=== PATIENT | female | born 2000 | race Caucasian/White ===

== ENCOUNTER 2023-07-30 20:39 | Emergency (ER) | payer BC, SELFPAY ==
[2023-07-30 20:39] VITALS: BP 128/88; PULSE 70; RESP 20; TEMP 36.7; O2SAT 100; BMI 24.2
--- NOTE | 2023-07-30 21:24 | XR_ITS ---
PROCEDURE INFORMATION: Exam: XR Right Forearm Exam date and time: 07/30/2023 9:28 PM Age: 23 years old Clinical indication: Pain; Lower or forearm; Right; Additional info: Fall TECHNIQUE: Imaging protocol: Radiologic exam of the right forearm. Views: 2 views. Total images: 4 COMPARISON: CR XR HAND RT 2V 07/30/2023 9:28 PM FINDINGS: Bones/joints: No acute fracture or joint dislocation. Mild ulnar negative variance can lead to chronic wrist instability. No concerning bone lesions or calcifications. Joint spaces are well maintained. Fractures 4th and 5th metacarpals as described previously. Soft tissues: Unremarkable soft tissues. IMPRESSION: Negative right forearm.
--- NOTE | 2023-07-30 21:24 | XR_ITS ---
PROCEDURE INFORMATION: Exam: XR Right Wrist Exam date and time: 07/30/2023 9:28 PM Age: 23 years old Clinical indication: Pain; Wrist; Right; Additional info: Fall TECHNIQUE: Imaging protocol: Radiologic exam of the right wrist. Views: 1 or 2 views. Total images: 2 COMPARISON: CR XR FOREARM RT 2V 07/30/2023 9:28 PM FINDINGS: Bones/joints: No acute fracture or joint dislocation. Mild ulnar negative variance can lead to chronic wrist instability. Carpal alignment is well maintained. Fractures of the 4th and 5th metacarpals as described on separate radiograph. Soft tissues: Unremarkable soft tissues. IMPRESSION: 1. Negative right wrist. 2. Acute fractures 4th and 5th metacarpals as described separately.
--- NOTE | 2023-07-30 21:24 | XR_ITS ---
PROCEDURE INFORMATION: Exam: XR Right Hand Exam date and time: 07/30/2023 9:28 PM Age: 23 years old Clinical indication: Pain; Hand; Right; Additional info: Fall TECHNIQUE: Imaging protocol: Radiologic exam of the right hand. Views: 3 or more views. Total images: 6 COMPARISON: CR XR FOREARM RT 2V 07/30/2023 9:28 PM FINDINGS: Bones/joints: Acute transverse fracture mid shaft 4th metacarpal with dorsal displacement and dorsal angulation at the fracture site. Acute transverse fracture distal shaft 5th metacarpal with dorsal displacement and angulation of the fracture site. No joint dislocation. Joint spaces are appropriate for age. No concerning bone lesions or calcifications. Soft tissues: Soft tissue swelling at the fracture sites. IMPRESSION: Acute fractures 4th and 5th metacarpals as described.
--- NOTE | 2023-07-30 21:24 | XR_ITS ---
PROCEDURE INFORMATION: Exam: XR Right Elbow Exam date and time: 07/30/2023 9:28 PM Age: 23 years old Clinical indication: Pain; Elbow; Right; Additional info: Fall TECHNIQUE: Imaging protocol: Radiologic exam of the right elbow. Views: 3 or more views. Total images: 6 COMPARISON: CR XR FOREARM RT 2V 07/30/2023 9:28 PM FINDINGS: Bones/joints: No acute fracture, joint dislocation, or joint effusion. No concerning bone lesions or calcifications. Joint spaces are well maintained. Soft tissues: Unremarkable soft tissues. IMPRESSION: Negative right elbow.
[2023-07-30] MEDS: ONDANSETRON 4MG/2ML VIAL 4 MG IV ×2 (21:41→22:06)
[2023-07-30] MEDS: MORPHINE 4MG/ML SYRINGE 4 MG IV ×2 (21:41→22:07)
--- NOTE | 2023-07-30 21:41 | ED_ITS ---
Discharge Plan Disposition Patient Disposition: Home, Self-Care Condition: Good Prescriptions Prescriptions: New hydrocodone-acetaminophen 5-300 mg tablet 1 tab PO Q6H PRN (Reason: pain) 3 Days Qty: 12 0RF Referrals Follow up/Referrals: Juan Sahu DO [Emergency Provider] - See instructions Tomas Preston DO [Staff Physician] - See instructions (Please call office first thing in the morning to schedule follow up) Provider,Referral, MD [Primary Care Provider] - See instructions Activity Restrictions/Add. Instructions Additional Instructions/Restrictions: You have been evaluated in the ED for your injury. Keep the splint clean and dry, do not apply any pressure to it. You should follow-up with your PCP in the next 3 to 5 days. Please return to ED for any new or worsening symptoms. I have written for hydrocodone to help with pain. May also take ibuprofen and Tylenol as needed. Please call orthopedic surgery (Dr. Preston) first thing in the morning to schedule appointment for re-check. Clinical Impressions Clinical Impression: Closed fracture of metacarpal of right hand Instructions Patient Instructions: How to Take Care of Your Splint Discharge ED Provider: Juan Sahu General Adult HPI <Juan Sahu DO - Last Filed: 07/30/23 23:30> General Chief complaint: Fall Stated complaint: AO fall 07/29, right hand pain Time Seen by Provider: 07/30/23 21:31 Mode of Arrival: Ambulatory Source of Information: Patient Limitations: No Limitations Description of Symptoms (Recalled from ER Triage Doc. by RN): Pt presents to ED for R hand pain/injury. Pt states she fell down 2 stairs, no LOC, no other complaints. Pt has obvious deformity to R hand. Rates pain 9/10 History of Present Illness HPI narrative: 23-year-old female with no pertinent past medical history presents today for evaluation concerning right upper extremity pain. Patient states she fell down 2 stairs and landed on her right outstretched hand. Denies hitting her head or losing consciousness. Currently rates pain as 9 out of 10. No further complaints. Related Data Previous Rx's Medication Instructions Recorded hydrocodone 5 mg-acetaminophen 300 1 tab PO Q6H PRN pain 3 days #12 07/30/23 mg tablet tabs Allergies Allergy/AdvReac Type Severity Reaction Status Date / Time morphine Allergy Verified 07/30/23 22:15 PFSH <Juan Sahu DO - Last Filed: 07/30/23 23:30> [facility] Disclaimer: The information contained in this section may have been updated after the patient was seen, as this information can be updated by other users. Social History (Updated 07/30/23 @ 23:30 by Juan Sahu DO) Smoking Status: Current every day smoker alcohol intake: never current occupational status: employed Travel in the last 8 weeks: None <Juan Sahu DO - Last Filed: 07/30/23 23:30> ROS Obtained: Yes All systems reviewed & no additional complaints except as documented Physical Exam <Juan Sahu DO - Last Filed: 07/30/23 23:30> General General appearance: alert and in no apparent distress Head Head exam: atraumatic and normocephalic Eye Eye exam: Present normal appearance, PERRL and EOMI ENT ENT exam: Present normal oropharynx and mucous membranes moist Neck Neck exam: Present full ROM; Absent meningismus Respiratory Respiratory exam: Absent respiratory distress, wheezes, stridor or accessory muscle use Cardiovascular Cardiovascular exam: Present normal rhythm Abdominal Exam Abdominal exam: Present soft; Absent distention, tenderness, guarding, rebound or rigidity Extremities Exam Extremities exam: Present tenderness (Tenderness palpation over the right forearm, wrist and hand with associated swelling. Obvious deformity. Palpable radial pulses. Sensation intact.); Absent full ROM Neurological Exam Neurological exam: Present alert, oriented X3 and CN II-XII intact; Absent motor sensory deficit Psychiatric Psychiatric exam: Present normal affect and normal mood Skin Skin exam: Present warm and dry Medical Decision Making <Juan Sahu DO - Last Filed: 07/30/23 23:30> Medical Records Medical records reviewed: Yes I reviewed the patient's medical records. Dragan Inquiry Pt receiving controlled substance: No Dragan was queried for this patient: No Vital Signs: 07/30/23 20:39 Temperature 98.0 F Temperature Source Oral Pulse Rate [Left] 70 Respiratory Rate 20 Blood Pressure [Right Arm] 128/88 Blood Pressure Mean [Right Arm] 101 02 Sat by Pulse Oximetry 100 Oxygen Delivery Method Room Air Orders (Tests/Meds): ED MEDICATIONS Generic Name Dose Route Start Last Admin Trade Name Freq PRN Reason Stop Dose Admin Sodium Chloride 8 ml 07/30/23 22:13 Sodium Chloride 0.9% 10ml Vial IV 08/29/23 22:12 NEEDED PRN dilute pepcid Discontinued Medications Generic Name Dose Route Start Last Admin Trade Name Venessa PRN Reason Stop Dose Admin Diphenhydramine HCl 50 mg 07/30/23 22:13 07/30/23 22:16 Diphenhydramine 50mg/Ml Vial IV 07/30/23 22:14 50 mg ONCE ONE Administration Epinephrine HCl 0.3 mg 07/30/23 22:34 07/30/23 22:37 Epinephrine 1 Mg/Ml Ampul SQ 07/30/23 22:35 0.3 mg ONCE ONE Administration Famotidine 20 mg 07/30/23 22:13 07/30/23 22:15 Famotidine 20mg/2ml Vial IV 07/30/23 22:14 20 mg ONCE ONE Administration Ketamine HCl 20 mg 07/30/23 22:28 07/30/23 22:38 Ketamine 50mg/1ml Syringe NS 07/30/23 22:29 Not Given ONCE ONE Ketamine HCl 20 mg 07/30/23 22:35 07/30/23 23:25 Ketamine 50mg/1ml Syringe IV 07/30/23 22:36 20 mg ONCE ONE Administration Methylprednisolone Sodium Succinate 125 mg 07/30/23 23:18 07/30/23 23:33 Methylprednisolone Sod Succ 125mg Vial IV 07/30/23 23:19 125 mg ONCE ONE Administration Morphine Sulfate 4 mg 07/30/23 21:24 07/30/23 21:41 Morphine 4mg/Ml Syringe IV 07/30/23 21:25 4 mg ONCE ONE Administration Morphine Sulfate 4 mg 07/30/23 22:03 07/30/23 22:07 Morphine 4mg/Ml Syringe IV 07/30/23 22:04 4 mg ONCE ONE Administration Ondansetron HCl 4 mg 07/30/23 21:24 07/30/23 21:41 Ondansetron 4mg/2ml Vial IV 07/30/23 21:25 4 mg ONCE ONE Administration Ondansetron HCl 4 mg 07/30/23 22:03 07/30/23 22:06 Ondansetron 4mg/2ml Vial IV 07/30/23 22:04 4 mg ONCE ONE Administration ORDERS Category Date Time Status XR elbow RT min 3V Routine Exams 07/30/23 21:24 Completed XR forearm RT 2V Routine Exams 07/30/23 21:24 Completed XR hand RT 2V Stat Exams 07/30/23 23:33 Completed XR hand RT min 3V Stat Exams 07/30/23 21:24 Completed XR wrist RT 2V Routine Exams 07/30/23 21:24 Completed Medical Decision Narrative: 23-year-old female with no pertinent past medical history presents today for evaluation concerning right upper extremity pain. Patient states she fell down 2 stairs and landed on her right outstretched hand. Denies hitting her head or losing consciousness. Currently rates pain as 9 out of 10. On assessment she was medically stable and in no acute distress. Afebrile. Physical exam revealed a right upper extremity with tenderness palpation of the right forearm, right wrist and right hand. Associated swelling. Palpable radial pulses. Sensation intact. Differential diagnoses include not limited to radial/ulnar fracture, wrist fracture, hand fracture, musculoskeletal pain, and others. X-ray imaging of the right hand revealed a fourth and fifth metacarpal fracture on my informal interpretation. Radiology report confirmed. Patient was given morphine for pain during her stay however did have an allergic reaction including an erythematous skin rash and shortness of breath. She did receive Benadryl, Pepcid, Solu-Medrol and IM epinephrine. Will document morphine allergy in chart. On reassessment she remained hemodynamically stable and in no acute distress. I discussed ED workup and results and she agreed to splint application. She was signed out to Dr. Freeman pending splint application. <Nanci Freeman MD - Last Filed: 07/30/23 23:59> Vital Signs: 07/30/23 20:39 Temperature 98.0 F Temperature Source Oral Pulse Rate [Left] 70 Respiratory Rate 20 Blood Pressure [Right Arm] 128/88 Blood Pressure Mean [Right Arm] 101 02 Sat by Pulse Oximetry 100 Oxygen Delivery Method Room Air Orders (Tests/Meds): ED MEDICATIONS Generic Name Dose Route Start Last Admin Trade Name Freq PRN Reason Stop Dose Admin Sodium Chloride 8 ml 07/30/23 22:13 Sodium Chloride 0.9% 10ml Vial IV 08/29/23 22:12 NEEDED PRN dilute pepcid Discontinued Medications Generic Name Dose Route Start Last Admin Trade Name Freq PRN Reason Stop Dose Admin Diphenhydramine HCl 50 mg 07/30/23 22:13 07/30/23 22:16 Diphenhydramine 50mg/Ml Vial IV 07/30/23 22:14 50 mg ONCE ONE Administration Epinephrine HCl 0.3 mg 07/30/23 22:34 07/30/23 22:37 Epinephrine 1 Mg/Ml Ampul SQ 07/30/23 22:35 0.3 mg ONCE ONE Administration Famotidine 20 mg 07/30/23 22:13 07/30/23 22:15 Famotidine 20mg/2ml Vial IV 07/30/23 22:14 20 mg ONCE ONE Administration Ketamine HCl 20 mg 07/30/23 22:28 07/30/23 22:38 Ketamine 50mg/1ml Syringe NS 07/30/23 22:29 Not Given ONCE ONE Ketamine HCl 20 mg 07/30/23 22:35 07/30/23 23:25 Ketamine 50mg/1ml Syringe IV 07/30/23 22:36 20 mg ONCE ONE Administration Methylprednisolone Sodium Succinate 125 mg 07/30/23 23:18 07/30/23 23:33 Methylprednisolone Sod Succ 125mg Vial IV 07/30/23 23:19 125 mg ONCE ONE Administration Morphine Sulfate 4 mg 07/30/23 21:24 07/30/23 21:41 Morphine 4mg/Ml Syringe IV 07/30/23 21:25 4 mg ONCE ONE Administration Morphine Sulfate 4 mg 07/30/23 22:03 07/30/23 22:07 Morphine 4mg/Ml Syringe IV 07/30/23 22:04 4 mg ONCE ONE Administration Ondansetron HCl 4 mg 07/30/23 21:24 07/30/23 21:41 Ondansetron 4mg/2ml Vial IV 07/30/23 21:25 4 mg ONCE ONE Administration Ondansetron HCl 4 mg 07/30/23 22:03 07/30/23 22:06 Ondansetron 4mg/2ml Vial IV 07/30/23 22:04 4 mg ONCE ONE Administration ORDERS Category Date Time Status XR elbow RT min 3V Routine Exams 07/30/23 21:24 Completed XR forearm RT 2V Routine Exams 07/30/23 21:24 Completed XR hand RT 2V Stat Exams 07/30/23 23:33 Completed XR hand RT min 3V Stat Exams 07/30/23 21:24 Completed XR wrist RT 2V Routine Exams 07/30/23 21:24 Completed Medical Decision Narrative: 23-year-old female with no pertinent past medical history presents today for evaluation concerning right upper extremity pain. Patient states she fell down 2 stairs and landed on her right outstretched hand. Denies hitting her head or losing consciousness. Currently rates pain as 9 out of 10. On assessment she was medically stable and in no acute distress. Afebrile. Physical exam revealed a right upper extremity with tenderness palpation of the right forearm, right wrist and right hand. Associated swelling. Palpable radial pulses. Sensation intact. Differential diagnoses include not limited to radial/ulnar fracture, wrist fracture, hand fracture, musculoskeletal pain, and others. X-ray imaging of the right hand revealed a fourth and fifth metacarpal fracture on my informal interpretation. Radiology report confirmed. Patient was given morphine for pain during her stay however did have an allergic reaction including an erythematous skin rash and shortness of breath. She did receive Benadryl, Pepcid, Solu-Medrol and IM epinephrine. Will document morphine allergy in chart. On reassessment she remained hemodynamically stable and in no acute distress. I discussed ED workup and results and she agreed to splint application. She was signed out to Dr. Freeman pending splint application. Freeman: Upon my assumption of care patient is stable and resting comfortably. She has displaced fourth and fifth metacarpal fracture of the right hand. Patient received pain dose ketamine and hematoma block, fracture was reduced showing improvement though not complete anatomic reduction. Splint was applied. Patient continues to be neurovascularly intact. See procedure notes for de tails. On reassessment patient is stable and appropriate for discharge. Patient was prescribed hydrocodone for fracture pain management. Patient was given instructions on symptomatic management, follow up instructions, and return precautions for the emergency department. Patient indicated understanding and was discharged in stable condition. Procedures <Nanci Freeman MD - Last Filed: 07/30/23 23:59> Orthopedic Fracture Reduction Fracture #1: Time Out Performed: Yes Side: right Fracture Reduction Location: other (Right hand fracture) Analgesia: hematoma block (4mL 1% lidocaine) and other (Pain dose ketamine) Technique: direct manipulation Post Reduction X-rays Demonstrate: other (Improved alignment of fourth and fifth metacarpal fractures, fifth metacarpal continues to have marked angulation though improved from prior) Post-reduction neuro exam: intact and no change Post-reduction vascular exam: intact and no change Splint Applied: Yes Patient Tolerated Procedure: well Orthopedic Splinting/Casting Injury #1: Side: right Upper Extremity Injury Location: hand Upper Extremity Immobilizer: ulnar gutter (Soft roll, plaster, elastic bandage applied) Additional Comments: Splint personally applied and adjusted by me Post Cast/Splinting Neuro Status: intact and no change Post Cast/Splinting Vasc Status: intact and no change Critical Care <Juan Sahu DO - Last Filed: 07/30/23 23:30> Critical Care Time Critical Care Time: No
[2023-07-30] MEDS: FAMOTIDINE 20MG/2ML VIAL 20 MG IV (22:15)
[2023-07-30] MEDS: diphenhydrAMINE 50MG/ML VIAL 50 MG IV (22:16)
[2023-07-30] MEDS: EPINEPHrine 1 MG/ML AMPUL 0.299999999999999989 MG SQ (22:37)
[2023-07-30] MEDS: KETAMINE 50MG/1ML SYRINGE 20 MG IV (23:25)
[2023-07-30] MEDS: METHYLPREDNISOLONE SOD SUCC 125MG VIAL 125 MG IV (23:33)
--- NOTE | 2023-07-30 23:33 | XR_ITS ---
PROCEDURE INFORMATION: Exam: XR Right Hand Exam date and time: 07/30/2023 11:30 PM Age: 23 years old Clinical indication: Pain; Hand; Right; Additional info: Repeat, post reduction TECHNIQUE: Imaging protocol: Radiologic exam of the right hand. Views: 1 or 2 views. Total images: 2 COMPARISON: CR XR HAND RT 2V 07/30/2023 9:28 PM FINDINGS: Bones/joints: Acute fractures 4th and 5th metacarpals as previously described show improved alignment and decreased degree of angulation. Bone detail is limited by cast material. No joint dislocation. Soft tissues: Soft tissue detail is obscured. Other findings: Interval closed reduction with application a plaster cast. IMPRESSION: 1. Known fractures 4th and 5th metacarpals. 2. Mild improved alignment and decreased angulation following closed reduction.
[2023-07-31 00:12] VITALS: BP 124/72; PULSE 67; RESP 18; TEMP 36.6; O2SAT 100
== END 2023-07-31 00:13 | disposition home or self-care (01) ==
PROVIDERS: Emergency Provider Emergency Medicine
DX: S62.324A Displaced fracture of shaft of fourth metacarpal bone, right hand, initial encounter for closed fracture (principal); S62.326A Displaced fracture of shaft of fifth metacarpal bone, right hand, initial encounter for closed fracture; M79.641 Pain in right hand; W10.8XXA Fall (on) (from) other stairs and steps, initial encounter
CPT/HCPCS: 29125; 73080; 73090; 73100; 73120; 73130; 96374; 96375; 96376; 99285; J2405

== ENCOUNTER 2023-08-02 10:11 | Outpatient (CLI) | payer BC, SELFPAY ==
[2023-08-02 10:50] LABS: Basophils # 0.1 K/mm3 (0-0.2); Basophils % 0.9 % (0.1-2.0); Eosinophils # 0.1 K/mm3 (0.0-0.4); Hematocrit 41.5 % (37.0-47.0); Hemoglobin 13.5 g/dL (12.2-16.2); Lymphocytes # 1.8 K/mm3 (0.7-4.5); Lymphocytes % 29.4 % (10-50); Mean Corpuscular HGB Conc 32.6 g/dL (31.8-35.4); Mean Corpuscular Hemoglobin 29.7 pg (27.0-31.2); Mean Corpuscular Volume 91.2 fl (81-99); Monocytes # 0.3 K/mm3 (0.1-1.0); Monocytes % 4.2 % (1.7-9.3); Neutrophils % 64.5 % (37.0-80.0); Platelet Count 165 K/mm3 (142-424); Red Blood Count 4.55 M/mm3 (4.20-5.40); Red Cell Distribution Width 14.2 % (11.5-17.5); White Blood Count 6.3 K/mm3 (4.8-10.8)
[2023-08-02 11:21] LABS: Alanine Aminotransferase 23 U/L (12-78); Albumin Level 4.3 g/dl (3.5-5.0); Albumin/Globulin Ratio 1.8 (1.1-1.8); Alkaline Phosphatase 85 U/L (38-126); Aspartate Amino Transferase 21 U/L (14-36); Bilirubin,Total 0.3 mg/dl (0.2-1.3); Blood Urea Nitrogen 14 mg/dl (7-17); Calcium 9.5 mg/dl (8.4-10.2); Carbon Dioxide 27 mmol/L (22.0-30.0); Chloride 103 mmol/L (98-107); Estimated Glomerular Filt Rate 105 ml/min (>60); GFR (African American) 127 ML/MIN (>60); Globulin 2.4 g/dL (1.3-3.2); Glucose 85 mg/dl (74-100); Sodium 139 mmol/L (136-145); Total Protein,Serum 6.7 g/dl (6.3-8.2)
== END 2023-08-02 23:59 | disposition home or self-care (01) ==
LOC: LAB 10:11
PROVIDERS: Visit Provider Orthopaedic Surgery
DX: M79.641 Pain in right hand (principal); S62.324A Displaced fracture of shaft of fourth metacarpal bone, right hand, initial encounter for closed fracture; S62.326A Displaced fracture of shaft of fifth metacarpal bone, right hand, initial encounter for closed fracture
CPT/HCPCS: 36415; 80053; 85025

== ENCOUNTER 2023-09-06 12:29 | Emergency (ER) | payer SELFPAY ==
[2023-09-06 12:45] VITALS: BP 134/81; PULSE 65; RESP 20; TEMP 36.9; O2SAT 99; BMI 23.6
--- NOTE | 2023-09-06 13:03 | ED_ITS ---
Discharge Plan Disposition Patient Disposition: Home, Self-Care Condition: Good Prescriptions Prescriptions: New sulfamethoxazole-trimethoprim [Bactrim DS] 800-160 mg Tablet 1 tab PO BID Qty: 20 0RF cephalexin 500 mg capsule 500 mg PO QID Qty: 40 0RF mupirocin 2 % ointment 1 applic topical TID 7 Days Qty: 15 0RF Referrals Follow up/Referrals: Provider,Referral, MD [Primary Care Provider] - See instructions Activity Restrictions/Add. Instructions Additional Instructions/Restrictions: Rest the extremity, Elevate the extremity as tolerated while you are resting. Follow up with your surgeon. I called their office and notified them of your infections and told them about the antibiotics and wound culture. Please call them and follow their instructions. Follow up with your regular doctor. GO TO THE ER FOR ANY WORSENING SYMPTOMS Clinical Impressions Clinical Impression: Infection associated with internal fixation device Instructions Patient Instructions: Cephalexin, Ceftriaxone Injection Discharge ED Provider: Rigoberto Samayoa [facility] General Stated complaint: Pain and swelling in R hand/arm Mode of Arrival: Ambulatory Source of Information: Patient Limitations: No Limitations Time Seen by Provider: 09/06/23 13:01 Description of Symptoms (Recalled from Triage Doc. by RN): PATIENT C/O SWELLING, REDNESS, AND DRAINAGE FROM RIGHT HAND. PATIENT REPORTS A FRACTURE WITH PIN PLACEMENT APPROX 4 WEEKS AGO. REDNESS AND SWELLING NOTED TO EXTERNAL PIN SITE HEENT Symptoms (Recalled from RN notes): No Resp Symptoms (Recalled from RN notes): No Skin Symptoms (Recalled from RN notes): Yes MS Symptoms (Recalled from RN notes): No Functional Status (Recalled from RN notes): WNL History of Present Illness Provider Complaint: She has a history of fracturing her right hand. She had surgery with pins placed by her orthopedic surgeon in [place], [place]. She has an appointment there in 4 days to have the pins removed. She came here today because she is having redness, swelling and drainage around on of the pin sites. She denies fever/chills/malaise. Related Data Previous Rx's Medication Instructions Recorded cephalexin 500 mg capsule 500 mg PO QID #40 caps 09/06/23 mupirocin 2 % topical ointment 1 applic topical TID 7 days #15 09/06/23 grams sulfamethoxazole 800 1 tab PO BID #20 tabs 09/06/23 mg-trimethoprim 160 mg tablet (Bactrim DS) Allergies Allergy/AdvReac Type Severity Reaction Status Date / Time morphine Allergy Verified 08/02/23 09:01 Worker's Comp Is this a Worker's Comp case?: No [facility] Disclaimer: The information contained in this section may have been updated after the patient was seen, as this information can be updated by other users. Surgical History (Updated 09/06/23 @ 12:54 by Jenna Gipson RN) History of breast biopsy History of hand surgery Social History Smoking Status: Current every day smoker alcohol intake: never current occupational status: employed Travel in the last 8 weeks: None ROS Obtained: Yes All systems reviewed & no additional complaints except as documented Constitutional Constitutional: Denies chills and Denies fever(s) Eyes Eyes: Denies eye discharge ENT Ears, Nose, Mouth, and Throat: Denies dizziness, Denies otalgia and Denies sore throat Cardiovascular Cardiovascular: Denies chest pain Respiratory Respiratory: Denies shortness of breath, Denies chest congestion, Denies cough, Denies stridor and Denies wheezing Gastrointestinal Gastrointestingal: Denies nausea or vomiting Musculoskeletal Musculoskeletal: Reports as per HPI Integumentary/Breasts Skin/Breast: Reports as per HPI and Reports redness Neurologic Neurologic: Denies dizziness and Denies paresthesias Allergic/Immunologic Allergic/Immunologic: Denies wheezing Physical Exam General General appearance: alert and in no apparent distress Head Head exam: atraumatic, normocephalic and normal inspection Eye Eye exam: Present normal appearance, PERRL and EOMI ENT ENT exam: Present normal exam, normal oropharynx, mucous membranes moist, TM's normal bilaterally and normal external ear exam Neck Neck exam: Present normal inspection, full ROM and trachea midline; Absent meningismus or lymphadenopathy Chest Chest inspection: Present normal inspection and symmetric chest wall rise; Absent tenderness Respiratory Respiratory exam: Present normal lung sounds bilaterally; Absent respiratory distress Cardiovascular Cardiovascular exam: Present regular rate and normal rhythm; Absent JVD Abdominal Exam Abdominal exam: Present soft and normal bowel sounds; Absent distention, tenderness or guarding Extremities Exam Extremities exam: Present normal inspection, full ROM and normal capillary refill; Absent calf tenderness Back Exam Back exam: Present normal inspection; Absent tenderness Neurological Exam Neurological exam: Present alert and oriented X3 Psychiatric Psychiatric exam: Present normal affect and normal mood Skin Skin exam: Present other (there is redness and swelling noted around the pin site at her 4th metacarpal. A small amount of clear drainage is noted and cultured was obtained. ) Lymphatic Lymphatic Findings: no adenopathy Medical Decision Making Medical Records Medical records reviewed: No I reviewed the patient's medical records. Dragan Inquiry Pt receiving controlled substance: No Vital Signs: 09/06/23 12:45 Temperature 98.4 F Temperature Source Oral Pulse Rate [Left Brachial] 65 Respiratory Rate 20 Blood Pressure [Left Arm] 134/81 Blood Pressure Mean [Left Arm] 98 Blood Pressure Source [Left Arm] Automatic Cuff Blood Pressure Position [Left Arm] Sitting 02 Sat by Pulse Oximetry 99 Oxygen Delivery Method Room Air Medical Decision Narrative: I called her surgeon's office and was able to speak to the nurse there. I notified them of the possible infection and that we were starting the antibiotics (rocephin, bactrim, and cephalexin) and that we had taken a culture. She is to follow up with them jeane.
[2023-09-06] MEDS: cefTRIAXone 1GM VIAL 1 GM IM (13:23)
[2023-09-06] MEDS: LIDOCAINE 1% 5ML PF VIAL IM (13:23)
[2023-09-06 13:42] VITALS: BP 134/81; PULSE 65; RESP 20; TEMP 36.9; O2SAT 99
== END 2023-09-06 13:50 | disposition home or self-care (01) ==
PROVIDERS: Emergency Provider Nurse Practitioner Family
DX: B95.7 Other staphylococcus as the cause of diseases classified elsewhere (principal); T84.69XA Infection and inflammatory reaction due to internal fixation device of other site, initial encounter; M79.641 Pain in right hand; F17.210 Nicotine dependence, cigarettes, uncomplicated
CPT/HCPCS: 87070; 87077; 87186; 87205; 96372; 99204; 99212; G0463; J0696